=== PATIENT | female | born 1955 | race Caucasian/White ===

== ENCOUNTER 2017-12-21 13:54 | Emergency (ER) | payer BC ==
[2017-12-21] MEDS ORDERED: 0.9 % SODIUM CHLORIDE 1,000 ML BAG IV ONE (14:29)
[2017-12-21] MEDS ORDERED: PROMETHAZINE HCL 12.5 MG in 0.9 % SODIUM CHLORIDE 100ML 100 ML IVPB ONE ×2 (14:30→15:33)
--- NOTE | 2017-12-21 15:02 | Emergency Department Record ---
History of Present Illness - General Chief Complaint: Dizziness Stated Complaint: DIZINESS Time Seen by Provider: 12/21/17 14:23 Source: Patient Mode of Arrival: Ambulatory Limitations: No limitations - History of Present Illness Initial Comments: pt has felt very dizzy for 2wks and it got much worse today where she feels off balance and has diffiulty walking. she also has nausea MD Complaint: Dizziness, Difficulty walking Onset/Timin -: Week(s) Timing: Gradual onset Description: Off-balance, "Room spinning", Sense of movement History of Same: Yes History of Trauma: Yes Severity: Severe Improves With: Nothing Worsens With: Nothing - [place] Coma Scale Eye Response: (4) Open spontaneously Motor Response: (6) Obeys commands Verbal Response: (5) [place] Total: 15 - Symptoms of Stroke Symptoms of stroke: Dizziness, Vertigo - Related Data Home Medications Medication Instructions Recorded Confirmed Last Taken Fluticasone/Vilanterol 200/25 1 inh INH DAILY 12/21/17 12/21/17 Unknown [Breo Ellipta 200-25 Mcg INH] Previous Rx's Medication Instructions Recorded Meclizine HCl [Antivert] 25 mg PO Q8H #14 tablet 02/22/14 Meclizine HCl [Antivert] 25 mg PO Q8H #14 tablet 12/21/17 Promethazine HCl [Phenergan] 12.5 mg PO BID #10 tablet 12/21/17 Allergies Allergy/AdvReac Type Severity Reaction Status Date / Time Sulfa (Sulfonamide Allergy Severe ABDOMINAL Verified 12/21/17 14:01 Antibiotics) PAIN Travel Screening - Travel/Exposure Within Last 30 Days Have you traveled within the last 30 days?: No Review of Systems Reviewed: No additional complaints except as noted below Constitutional: Reports: As per HPI. Denies: Chills, Fever, Malaise, Night sweats, Weakness, Weight change Eyes: Reports: As per HPI. Denies: Eye discharge, Eye pain, Photophobia, Vision change ENT: Reports: As per HPI. Denies: Congestion, Dental pain, Ear pain, Epistaxis , Hearing loss, Throat pain Respiratory: Reports: As per HPI. Denies: Cough, Dyspnea, Hemoptysis, Stridor, Wheezes Cardiovascular: Reports: As per HPI. Denies: Arrhythmia, Chest pain, Dyspnea on exertion, Edema, Murmurs, Orthopnea, Palpitations, Paroxysmal nocturnal dyspnea, Rheumatic Fever, Syncope Endocrine: Reports: As per HPI. Denies: Fatigue, Heat or cold intolerance, Polydipsia, Polyuria Gastrointestinal: Reports: As per HPI. Denies: Abdominal pain, Constipation, Diarrhea, Hematemesis, Hematochezia, Melena, Nausea, Vomiting Genitourinary: Reports: As per HPI. Denies: Abnormal menses, Discharge, Dyspareunia, Dysuria, Frequency, Hematuria, Incontinence, Retention, Urgency Musculoskeletal: Reports: As per HPI. Denies: Arthralgia, Back pain, Gout, Joint swelling, Myalgia, Neck pain Skin: Reports: As per HPI. Denies: Bruising, Change in color, Change in hair/ nails, Lesions, Pruritus, Rash Neurological: Reports: As per HPI, Vertigo. Denies: Abnormal gait, Confusion, Headache, Numbness, Paresthesias, Seizure, Tingling, Tremors, Weakness Psychiatric: Reports: As per HPI. Denies: Anxiety, Auditory hallucinations, Depression, Homicidal thoughts, Suicidal thoughts, Visual hallucinations Hematological/Lymphatic: Reports: As per HPI. Denies: Anemia, Blood Clots, Easy bleeding, Easy bruising, Swollen glands Past Medical History - SOCIAL HISTORY Smoking Status: Never smoker Alcohol Use: None Drug Use: None - RESPIRATORY Hx Respiratory Disorders: Yes Hx Asthma: Yes - CARDIOVASCULAR Hx Cardio Disorders: Yes Comment:: high cholesterol - NEURO Hx Neuro Disorders: Yes Hx Dizziness: Yes (occasionally) Hx of Migraines: Yes - GI Hx GI Disorders: No - Hx Genitourinary Disorders: Yes - ENDOCRINE Hx Endocrine Disorders: No - MUSCULOSKELETAL Hx Musculoskeletal Disorders: No - PSYCH Hx Psych Problems: No - HEMATOLOGY/ONCOLOGY Hx Hematology/Oncology Disorders: No Family Medical History Any Significant Family History?: Yes Hx Cancer: Father, Mother Physical Exam - General General Appearance: Alert, Oriented x3, Cooperative, Mild distress - Head Head exam: Normal inspection - Eye Eye exam: Normal appearance, PERRL, EOMI Pupils: Normal accommodation - ENT ENT exam: Normal exam, Mucous membranes moist, Normal external ear exam, Normal orophraynx, TM's normal bilaterally Ear exam: Normal external inspection. negative: External canal tenderness Nasal Exam: Normal inspection. negative: Discharge, Sinus tenderness Mouth exam: Normal external inspection, Tongue normal Teeth exam: Normal inspection. negative: Dental caries Throat exam: Normal inspection. negative: Tonsillar erythema, Tonsillar exudate - Neck Neck exam: Normal inspection, Full ROM. negative: Tenderness - Respiratory Respiratory exam: Normal lung sounds bilaterally. negative: Respiratory distress - Cardiovascular Cardiovascular Exam: Regular rate, Normal rhythm, Normal heart sounds - GI/Abdominal GI/Abdominal exam: Soft, Normal bowel sounds. negative: Tenderness - Rectal Rectal exam: Deferred - exam: Deferred - Extremities Extremities exam: Normal inspection, Full ROM, Normal capillary refill. negative: Tenderness - Back Back exam: Reports: Normal inspection, Full ROM. Denies: Muscle spasm, Rash noted, Tenderness - Neurological Neurological exam: Alert, CN II-XII intact, Normal gait, Oriented X3 - Psychiatric Psychiatric exam: Normal affect, Normal mood - Skin Skin exam: Dry, Intact, Normal color, Warm Course Vital Signs 12/21/17 14:02 Temperature 97.7 F Pulse Rate 60 Respiratory 18 Rate Blood Pressure 116/75 Pulse Ox 96 Disposition Disposition: Discharge Clinical Impression: Vertigo Sinusitis Qualifiers: Sinusitis location: pansinusitis Chronicity: acute Recurrence: non-recurrent Qualified Code(s): J01.40 - Acute pansinusitis, unspecified Disposition: Home, Self-Care Condition: (1) Good Instructions: Vertigo (ED), Sinusitis (ED) Additional Instructions: follow up with family doctor. return sooner if worse. do not take both antivert and phenergan together. Prescriptions: Meclizine HCl [Antivert] 25 mg PO Q8H #14 tablet Promethazine HCl [Phenergan] 12.5 mg PO BID #10 tablet Quality - Quality Measures Quality Measures: Adult Sinusitis (>18yr) - Adult Sinusitis: Abx Overuse Quality Measure: Measure #331: Adult Sinusitis Abx Overuse Onset of symptoms over 10 days: Yes Presumed Bacterial: Yes Antibiotic Prescribed: Yes Adult Sinusitis: Antibiotic Within 10 Days of Symptoms: <Antibiotic NOT Prescribed Within 10 Days> [G9287] Reason for Prescription: Presumed Bacterial - Adult Sinusitis: Bacterial w/Abx Quality Measure: Measure #332: Adult Bacterial Sinusitis Correct Abx Use Adult Sinusitis: Appropriate Antibiotic: <Amoxicillin, w or w/o Clavulanate Prescribed> [G9315] - Adult Sinusitis: CT Use Quality Measure: Measure #333: Adult Sinusitis Adult Sinusitis: CT for Acute Sinusitis: CT Ordered With Documented Reason [ G9348] (feeling off balance, difficulty walking) Reason for Ordering CT: Symptoms At Least 7 to 10 Days, Acute Frontal Sinusitis - Blood Pressure Screening Does Patient Have Any of the Following: No Blood Pressure Classification: Normal BP Reading Systolic Measurement: 116 Diastolic Measurement: 75 Screening for High Blood Pressure: < Normal BP, F/U Not Required > [G8783]
--- NOTE | 2017-12-21 17:46 | Emergency Department Record ---
History of Present Illness - General Chief Complaint: Dizziness Stated Complaint: DIZINESS Time Seen by Provider: 12/21/17 14:23 Source: Patient Mode of Arrival: Ambulatory Limitations: No limitations - History of Present Illness Onset/Timin -: Week(s) Timing: Gradual onset Description: Off-balance, "Room spinning", Sense of movement History of Same: Yes History of Trauma: Yes Severity: Severe Improves With: Nothing Worsens With: Nothing - [place] Coma Scale Eye Response: (4) Open spontaneously Motor Response: (6) Obeys commands Verbal Response: (5) Oriented [place] Total: 15 - Symptoms of Stroke Symptoms of stroke: Dizziness, Vertigo - Related Data Home Medications Medication Instructions Recorded Confirmed Last Taken Fluticasone/Vilanterol 200/25 1 inh INH DAILY 12/21/17 12/21/17 Unknown [Breo Ellipta 200-25 Mcg INH] Previous Rx's Medication Instructions Recorded Meclizine HCl [Antivert] 25 mg PO Q8H #14 tablet 02/22/14 Amoxicillin/Potassium Clav 1 each PO BID #20 tablet 12/21/17 [Augmentin 875Mg/125Mg] Meclizine HCl [Antivert] 25 mg PO Q8H #14 tablet 12/21/17 Promethazine HCl [Phenergan] 12.5 mg PO BID #10 tablet 12/21/17 Allergies Allergy/AdvReac Type Severity Reaction Status Date / Time Sulfa (Sulfonamide Allergy Severe ABDOMINAL Verified 12/21/17 14:01 Antibiotics) PAIN Travel Screening - Travel/Exposure Within Last 30 Days Have you traveled within the last 30 days?: No Review of Systems Constitutional: Reports: As per HPI. Denies: Chills, Fever, Malaise, Night sweats, Weakness, Weight change Eyes: Reports: As per HPI. Denies: Eye discharge, Eye pain, Photophobia, Vision change ENT: Reports: As per HPI. Denies: Congestion, Dental pain, Ear pain, Epistaxis , Hearing loss, Throat pain Respiratory: Reports: As per HPI. Denies: Cough, Dyspnea, Hemoptysis, Stridor, Wheezes Cardiovascular: Reports: As per HPI. Denies: Arrhythmia, Chest pain, Dyspnea on exertion, Edema, Murmurs, Orthopnea, Palpitations, Paroxysmal nocturnal dyspnea, Rheumatic Fever, Syncope Endocrine: Reports: As per HPI. Denies: Fatigue, Heat or cold intolerance, Polydipsia, Polyuria Gastrointestinal: Reports: As per HPI. Denies: Abdominal pain, Constipation, Diarrhea, Hematemesis, Hematochezia, Melena, Nausea, Vomiting Genitourinary: Reports: As per HPI. Denies: Abnormal menses, Discharge, Dyspareunia, Dysuria, Frequency, Hematuria, Incontinence, Retention, Urgency Musculoskeletal: Reports: As per HPI. Denies: Arthralgia, Back pain, Gout, Joint swelling, Myalgia, Neck pain Skin: Reports: As per HPI. Denies: Bruising, Change in color, Change in hair/ nails, Lesions, Pruritus, Rash Neurological: Reports: As per HPI, Vertigo. Denies: Abnormal gait, Confusion, Headache, Numbness, Paresthesias, Seizure, Tingling, Tremors, Weakness Psychiatric: Reports: As per HPI. Denies: Anxiety, Auditory hallucinations, Depression, Homicidal thoughts, Suicidal thoughts, Visual hallucinations Hematological/Lymphatic: Reports: As per HPI. Denies: Anemia, Blood Clots, Easy bleeding, Easy bruising, Swollen glands Past Medical History - SOCIAL HISTORY Smoking Status: Never smoker Alcohol Use: None Drug Use: None - RESPIRATORY Hx Respiratory Disorders: Yes Hx Asthma: Yes - CARDIOVASCULAR Hx Cardio Disorders: Yes Comment:: high cholesterol - NEURO Hx Neuro Disorders: Yes Hx Dizziness: Yes (occasionally) Hx of Migraines: Yes - GI Hx GI Disorders: No - Hx Genitourinary Disorders: Yes - ENDOCRINE Hx Endocrine Disorders: No - MUSCULOSKELETAL Hx Musculoskeletal Disorders: No - PSYCH Hx Psych Problems: No - HEMATOLOGY/ONCOLOGY Hx Hematology/Oncology Disorders: No Family Medical History Any Significant Family History?: Yes Hx Cancer: Father, Mother Physical Exam - General Limitations: No limitations Course Vital Signs 12/21/17 12/21/17 14:02 16:40 Temperature 97.7 F 97.7 F Pulse Rate 60 65 Respiratory 18 18 Rate Blood Pressure 116/75 111/75 Pulse Ox 96 97 Disposition Disposition: Discharge Clinical Impression: Vertigo Sinusitis Qualifiers: Sinusitis location: pansinusitis Chronicity: acute Recurrence: non-recurrent Qualified Code(s): J01.40 - Acute pansinusitis, unspecified Disposition: Home, Self-Care Condition: (1) Good Instructions: Sinusitis (ED), Vertigo (ED) Additional Instructions: follow up with family doctor. return sooner if worse. do not take both antivert and phenergan together. Prescriptions: Amoxicillin/Potassium Clav [Augmentin 875Mg/125Mg] 1 each PO BID #20 tablet Meclizine HCl [Antivert] 25 mg PO Q8H #14 tablet Promethazine HCl [Phenergan] 12.5 mg PO BID #10 tablet Forms: Patient Portal Access Quality - Quality Measures Quality Measures: N/A - Blood Pressure Screening Does Patient Have Any of the Following: No Blood Pressure Classification: Normal BP Reading Systolic Measurement: 111 Diastolic Measurement: 75 Screening for High Blood Pressure: < Normal BP, F/U Not Required > [G8762]
--- NOTE | 2017-12-23 08:59 | CT SCAN REPORT ---
EXAM: CT OF THE BRAIN HISTORY: DIZZINESS. TECHNIQUE: CT of the brain without contrast was obtained. Comparison: Prior CT of the brain 02/22/14. FINDINGS: The globes are intact. Pansinusitis. No displaced or depressed skull fracture. No intra or extraaxial hemorrhage. CT is limited for evaluation of acute infarct. No CT evidence for large or territorial acute infarct. No mass or midline shift. The lopes white matter differentiation is preserved. IMPRESSION: PANSINUSITIS. NEGATIVE FOR ACUTE INTRACRANIAL ABNORMALITY. JOB NUMBER: [id number] [facility]
== END 2017-12-21 16:41 | disposition home or self-care (01) ==
LOC: ER 13:54
DX: J01.40 Acute pansinusitis, unspecified (principal); R42 Dizziness and giddiness; R26.2 Difficulty in walking, not elsewhere classified; R11.0 Nausea
CPT/HCPCS: 70450; 93005; 93010; 96361; 96365; 99284; J2550; J7030